=== PATIENT | male | born 1960 | race Caucasian/White ===

== ENCOUNTER 2019-10-05 17:24 | Inpatient (IN) | payer OTHER ==
[~2019-10-05] VITALS: Ht 167.6 cm; Wt 85.7 kg
[2019-10-05 18:26] LABS: BASOPHIL % 0.9 % (0-2); PLATELET COUNT 181 x10^3mcL (130-400); RED CELL DISTRIBUTION WIDTH 13.2 % (11.5-14.5)
[2019-10-05 18:51] LABS: ALBUMIN 3.5 g/dL (3.4-5.0); ALKALINE PHOSPHATASE 114 U/L (46-116); ALT/SGPT 37 U/L (16-63); AST/SGOT 16 U/L (15-37); BILIRUBIN TOTAL 0.77 mg/dL (0.20-1.00); CALCIUM 8.8 mg/dL (8.5-10.1); CARBON DIOXIDE 23.8 mmol/L (21-32); CHLORIDE SERUM 102 mmol/L (98-107); CHOLESTEROL 165 mg/dL (<200); CREATININE SERUM 1.3 mg/dL (0.7-1.3); GFR1 > 60 mL/min; HDL CHOLESTEROL 32 mg/dL (40-60); LIPASE 236 IU/L (73-393); POTASSIUM SERUM 4.1 mmol/L (3.5-5.1); SODIUM SERUM 136 mmol/L (136-145); T4(THYROXINE) 7.2 ug/dL (4.7-13.3); TOTAL PROTEIN, SERUM 6.3 g/dL (6.4-8.2)
[2019-10-05 18:53] LABS: GLUCOSE SERUM 453 mg/dL (74-106)
[2019-10-05 19:14] LABS: microscopic required? NO
[2019-10-05 19:24] LABS: urine erythrocyte NEGATIVE (NEGATIVE)
[2019-10-05 19:38] LABS: AMPHETAMINE QUAL UR NONE DETECTED (See below)
[2019-10-05 20:20] VITALS: BP 150/79
[2019-10-05 20:25] VITALS: Ht 167.6 cm; Wt 85.7 kg
[2019-10-06 04:35] VITALS: BP 128/77
[2019-10-06 07:20] LABS: PLATELET COUNT 154 x10^3mcL (130-400); RED CELL DISTRIBUTION WIDTH 13.3 % (11.5-14.5)
[2019-10-06 07:31] VITALS: BP 120/65
[2019-10-06 08:16] LABS: CALCIUM 7.8 mg/dL (8.5-10.1); CARBON DIOXIDE 26.2 mmol/L (21-32); CHLORIDE SERUM 109 mmol/L (98-107); CREATININE SERUM 0.9 mg/dL (0.7-1.3); GFR1 > 60 mL/min; GLUCOSE SERUM 255 mg/dL (74-106); MAGNESIUM 1.7 mg/dL (1.8-2.4); PHOSPHOROUS 2.5 mg/dL (2.5-4.9); POTASSIUM SERUM 4.2 mmol/L (3.5-5.1); SODIUM SERUM 142 mmol/L (136-145)
[2019-10-06] MEDS ORDERED: FORTAMET500 M1 PO (11:44)
[2019-10-06 11:48] VITALS: BP 111/60
[2019-10-06 16:25] VITALS: BP 147/79
== END 2019-10-06 16:40 | disposition home or self-care (01) | DRG 637 ==
LOC: ED 17:24 → DU 19:40
PROVIDERS: Emergency Medicine; ADMIT Internal Medicine
DX: E11.65 Type 2 diabetes mellitus with hyperglycemia (principal); N17.0 Acute kidney failure with tubular necrosis; D68.59 Other primary thrombophilia; I45.19 Other right bundle-branch block
CPT/HCPCS: 36600; 82962; G0378; J1815; J7030; Q0092